=== PATIENT | male | born 1995 | race Caucasian/White ===

== ENCOUNTER 2019-11-07 20:18 | Emergency (ER) | payer SELFPAY ==
[~2019-11-07] VITALS: Ht 190.5 cm; Wt 106.8 kg
[2019-11-07 21:10] VITALS: BP 147/83
[2019-11-07] MEDS ORDERED: MUPI22OI2 TP (22:01)
[2019-11-07] MEDS ORDERED: CLOT15CR23 TP (22:01)
--- NOTE | 2019-11-07 22:02 | PHYS DOC ---
Past Medical History Past Medical History: No Pertinent History Past Surgical History: No Surgical History Smoking Status: Current Every Day Smoker Additional Information: 2/ppd Alcohol Use: None General Adult EDM: Chief Complaint: SKIN PROBLEM HPI: HPI: Patient is a 24 year old male who presents to the emergency department with complaints of a scaly, yellow-brown, rash on the plantar surface of his left foot proximal to the third, fourth, and fifth toes. Patient states that the area is itchy. He had tried [id number] Tinactin and Lotrimin without any reduction in his symptoms. Patient states that the area also jordan at times. He denies any injury to the affected foot, however, reports that he does work in boots all day and his feet are often sweaty. He currently rates the pain a 6 out of 10 on the pain scale he denies any alleviating factors or radiation of the pain. He states that sometimes when he puts his foot in water the area jordan. Review of Systems: Review of Systems: Constitutional: Denies fever or chills. [] Musculoskeletal: Denies joint pain. [] Integument: See HPI Neurologic: Denies focal weakness or sensory changes. [] Psychiatric: Denies depression or anxiety. [] Heart Score: Risk Factors: Risk Factors: DM, Current or recent (<one month) smoker, HTN, HLP, family history of CAD, obesity. Risk Scores: Score 0 - 3: 2.5% MACE over next 6 weeks - Discharge Home Score 4 - 6: 20.3% MACE over next 6 weeks - Admit for Clinical Observation Score 7 - 10: 72.7% MACE over next 6 weeks - Early Invasive Strategies Physical Exam: PE: Constitutional: Well developed, well nourished, no acute distress, non-toxic appearance. [] HENT: Normocephalic, atraumatic, bilateral external ears normal, nose normal. [] Eyes: PERRLA, EOMI, conjunctiva normal, no discharge. [] Neck: Normal range of motion, no stridor. [] Cardiovascular: Heart rate regular rhythm Lungs & Thorax: Respirations even and unlabored, no retractions, no respiratory distress Skin: Warm, dry; yellowish-brown, scaly plaques consistent with athlete's foot dermatitis noted to the plantar surface of the left foot proximal to the third, fourth, and fifth metatarsals, no active drainage or bleeding. Extremities: Left foot no cyanosis, PMS intact, no edema. [] Neurologic: Alert and oriented X 3, no focal deficits noted. [] Psychologic: Affect normal, judgement normal, mood normal. [] Current Patient Data: Vital Signs: Vital Signs Date Time Temp Pulse Resp B/P (MAP) Pulse Ox O2 Delivery O2 Flow Rate FiO2 11/07/19 21:10 98.4 68 20 147/83 (104) 98 Room Air 98.4 EKG: EKG: [] Radiology/Procedures: Radiology/Procedures: [] Course & Med Decision Making: Course & Med Decision Making Pertinent Labs and Imaging studies reviewed. (See chart for details) [] Dragon Disclaimer: Dragon Disclaimer: This electronic medical record was generated, in whole or in part, using a voice recognition dictation system. Departure Departure Impression: Primary Impression: Athlete's foot on left Disposition: 01 HOME, SELF-CARE Condition: STABLE Referrals: NO PCP (PCP) Patient Instructions: Athlete's Foot, [id number] Additional Instructions: Fill the prescription(s) and use as directed. Follow-up with your primary care doctor if symptoms persist, return to the ER symptoms worsen. Scripts Mupirocin (MUPIROCIN OINTMENT) 22 Gm Oint...g. 1 SULEIMAN TP BID for top for 7 Days, #1 TUBE 0 Refills Prov: DAVID AGUERO APRN 11/07/19 Clotrimazole (CLOTRIMAZOLE) 15 Gm Cream..g. 1 SULEIMAN TP BID, #45 GM 0 Refills Prov: DAVID AGUERO APRN 11/07/19 Justicifation of Admission Dx: Justifications for Admission: Justification of Admission Dx: N/A DAVID AGUERO APRN Nov 07, 2019 22:02
== END 2019-11-07 22:20 | disposition home or self-care (01) ==
LOC: ER 20:18
DX: B35.3 Tinea pedis (principal); R21 Rash and other nonspecific skin eruption; F17.200 Nicotine dependence, unspecified, uncomplicated
CPT/HCPCS: 99283